=== PATIENT | female | born 1960 | race Hispanic/Latino ===

== ENCOUNTER 2018-08-01 22:49 | Emergency (ER) | payer BC, OTHER ==
[~2018-08-01] VITALS: Ht 165.1 cm; Wt 112.5 kg
[2018-08-02] MEDS ORDERED: PANTOPRAZOLE 40 MG 10ML VIAL IV STA (00:10)
[2018-08-02] MEDS ORDERED: ONDANSETRON HCL INJ 2MG/ML 2ML 2 MG/ML VIAL IV STA (00:10)
[2018-08-02] MEDS ORDERED: DONNATAL/LIDOCAINE/MAALOX 30 ML SUSP PO SCH (00:15)
[2018-08-02] MEDS ORDERED: SODIUM CHLORIDE 0.9% 1000ML 1,000 ML IV SCH (00:15)
[2018-08-02 00:30] LABS: BASOPHILS % 0.2 % (0.0-1.0); EOSINOPHILS # (AUTO) 0.1 (0.0-0.4); EOSINOPHILS % 1.9 % (0.0-6.0); HEMATOCRIT 44.3 % (34.2-44.1); HEMOGLOBIN 14.8 g/dL (12.0-16.0); LYMPHOCYTES # (AUTO) 1.9 (1.0-3.2); MEAN CORPUSCULAR HGB CONC 33.4 g/dL (31-35); MEAN CORPUSCULAR VOLUME 92.9 fL (81-99); MONOCYTES # (AUTO) 0.4 (0.2-0.8); MONOCYTES % 5.6 % (4.4-11.3); NEUTROPHILS # (AUTO) 3.9 (2.1-6.9); NEUTROPHILS % 62.1 % (38.7-80.0); PLATELET COUNT 217 x10e3/uL (140-360); RED BLOOD COUNT 4.77 x10e6/uL (3.6-5.1); RED CELL DISTRIBUTION WIDTH 12.6 % (11.7-14.4)
[2018-08-02 00:50] LABS: ALANINE AMINOTRANSFERASE 19 IU/L (0-55); ALBUMIN 3.6 g/dL (3.5-5.0); ALBUMIN/GLOBULIN RATIO 0.9 (0.8-2.0); ALKALINE PHOSPHATASE 89 IU/L (40-150); BLOOD UREA NITROGEN 10 mg/dL (7-26); BUN/CREATININE RATIO 13 (6-25); CARBON DIOXIDE 17 mmol/L (22-29); EST GLOMERULAR FILTRATION RATE > 60 ML/MIN (60-); GLUCOSE 125 mg/dL (74-118)
[2018-08-02 01:19] LABS: ANION GAP 17.1 mmol/L (8-16); CHLORIDE 109 mmol/L (98-107); POTASSIUM 4.1 mmol/L (3.5-5.1); SODIUM 139 mmol/L (136-145)
--- NOTE | 2018-08-02 01:22 | Diagnostic Imaging Report ---
CHEST SINGLE (PORTABLE), 08/02/2018 12:13 AM Technique: CHEST SINGLE (PORTABLE) Comparison: None available. Clinical history: Vomiting, chest tightness Findings: See Impression Impression: 1. Normal cardiomediastinal silhouette for technique. 2. No consolidation or edema. 3. No effusion or pneumothorax. 4. Mild right paraspinal density, possibly vascular confluence or small hiatal hernia. Signed by: Dr Angella Mario MD on 08/02/2018 1:19 AM
[2018-08-02] MEDS ORDERED: LIDOCAINE VISC 2% SOLN 15 ML UDC ONE (01:40)
[2018-08-02] MEDS ORDERED: BELLADONNA ALK/PHENOBARBITAL 5 ML UDC ONE (01:40)
[2018-08-02] MEDS ORDERED: MAGNESIUM/ALUMINUM/SIMETHICONE 30 ML UDC ONE (01:41)
[2018-08-02 02:44] VITALS: BP 136/72
[2018-08-02 02:53] LABS: BACTERIA,URINE FEW /HPF; BILIRUBIN,URINE NEGATIVE (NEGATIVE); CLARITY,URINE CLEAR (CLEAR); COLOR,URINE YELLOW (YELLOW); EPITHELIAL CELLS,URINE MODERATE /LPF; KETONES,URINE NEGATIVE (NEGATIVE); LEUKOCYTE ESTERASE ,URINE NEGATIVE (NEGATIVE); NITRITE,URINE NEGATIVE (NEGATIVE); PROTEIN,URINE DIPSTICK NEGATIVE (NEGATIVE); RBC,URINE 0-5 /HPF (0-5); URINE UROBILINOGEN 0.2 mg/dL (0.2 - 1); WBC,URINE (MAN) 0-5 /HPF (0-5)
[2018-08-02 04:00] LABS: AMYLASE 42 U/L (25-125); CREATINE KINASE 162 IU/L (29-168); LIPASE 19 U/L (8-78)
== END 2018-08-02 03:18 | disposition home or self-care (01) ==
LOC: ER 22:49
DX: R11.2 Nausea with vomiting, unspecified (principal); K52.9 Noninfective gastroenteritis and colitis, unspecified; K29.00 Acute gastritis without bleeding
CPT/HCPCS: 36415; 71045; 80053; 81001; 82150; 82550; 82553; 83690; 84484; 85025; 93005 ×2; 96374; 96375; 99284; J2405; J7030

== ENCOUNTER 2022-01-24 01:19 | Emergency (ER) | payer BC, OTHER ==
[~2022-01-24] VITALS: Ht 165.1 cm; Wt 112.5 kg
[2022-01-24] MEDS ORDERED: PREDNISONE20 MG PO (03:47)
[2022-01-24] MEDS ORDERED: AZITHROMYCIN250 MG PO (03:47)
[2022-01-24] MEDS ORDERED: VENTOLIN HFA18 GM INH (03:47)
== END 2022-01-24 03:58 | disposition home or self-care (01) ==
LOC: ER 01:55
DX: U07.1 COVID-19 (principal); R05.9 Cough, unspecified; J32.9 Chronic sinusitis, unspecified; R53.1 Weakness; K21.9 Gastro-esophageal reflux disease without esophagitis; Z88.5 Allergy status to narcotic agent
CPT/HCPCS: 70450; 99283; U0002